=== PATIENT | female | born 1995 | race Hispanic/Latino ===

== ENCOUNTER 2016-11-09 19:34 | Emergency (ER) | payer OTHER ==
[~2016-11-09] VITALS: Ht 157.5 cm; Wt 54.4 kg
[2016-11-09 21:45] LABS: ABSOLUTE BASOPHIL COUNT 0 /CUMM (0.0-0.2); ABSOLUTE EOSINOPHIL COUNT 0.1 /CUMM (0.0-0.7); ABSOLUTE MONOCYTE COUNT 0.7 /CUMM (0.10-0.60); BASOPHIL % 0.4 % (0.0-2.0); EOSINOPHIL % 1.1 % (0-5); GRANULOCYTE % 60.1 % (42.2-75.2); HEMATOCRIT 35.3 % (37-47); MEAN CORPUSCULAR VOLUME 74.9 FL (81.0-99.0); MEAN PLATELET VOLUME 11.3 FL (7.4-10.4); PLATELET COUNT 219 /CUMM (130-400); RBC DISTRIBUTION WIDTH 19.8 % (11.5-14.5); RED BLOOD CELL CT 4.71 /CUMM (4.20-5.40); WHITE BLOOD CELL COUNT 11.5 /CUMM (4.8-10.8)
[2016-11-09 21:54] LABS: ABSOLUTE GRANULOCYTE CT 6.9 /CUMM (1.4-6.5); ABSOLUTE LYMPH COUNT 3.7 /CUMM (1.2-3.4)
--- NOTE | 2016-11-09 22:03 | ED NEURO DEFICIT/STROKE ---
History of Present Illness General Chief Complaint: General Adult Stated Complaint: PER MOM, "SHE HAS PAIN ALL HER LEFT SIDE" Source: patient Exam Limitations: language barrier Vital Signs & Intake/Output Vital Signs & Intake/Output Vital Signs Date Time Temp Pulse Resp B/P Pulse O2 O2 Flow FiO2 Ox Delivery Rate 11/09 2230 98.7 89 16 97/60 100 Room Air 11/09 1951 97.8 98 18 110/71 98 Room Air ED Intake and Output 11/10 0000 11/09 1200 Intake Total Output Total Balance Patient 120 lb Weight Allergies Coded Allergies: Penicillins (Intermediate, RASH 11/09/16) Reconcile Medications Hydrocodone/Acetaminophen (Hydrocodon-Acetaminophen 5-325) 5 MG-325 MG TABLET 1-2 TAB PO Q4-6 PRN PRN pain Meloxicam (Mobic) 15 MG TABLET 1 TAB PO DAILY pain Triage Note: PT TO TRIAGE WITH C/O PAIN 8/10, NUMBNESS AND WEAKNESS TO L SIDE OF BODY x3DAYS, WEAKNESS TO LUE AND LLE NOTED, NO FACIAL DROOP NOTED, SPEACH CLEAR. PT SPEAK K[place] AND HAS HER MOTHER TO TRANSLATE. PT DENIES CHEST PAIN,SOB,ABD PAIN. VSS. PT TO ROOM4. Triage Nurses Notes Reviewed? yes Onset: Abrupt Duration: week(s): (1), constant, continues in ED Timing: recent history : No Patient currently breastfeeds: No HPI: 21-year-old female that recently traveled from [place] 2 weeks ago that does not speak any [place]ian but has friend translating with . comes in with tingling and pain down her left arm and her left leg and weakness. Associated headache. Denies any fever chills vomiting shortness of breath chest pain or rashes. Denies any prior history of this. Denies any injuries. Nothing seems to make the symptoms better or worse. (ENRIQUE AMBROCIO) Past History Travel History Traveled to [place] past 21 day No Medical History Any Pertinent Medical History? none Surgical History Surgical History: none Psychosocial History What is your primary language Kazakh Tobacco Use: Current Daily Use Daily Tobacco Use Amount/Type: =< 4 Cigarettes daily Family History Hx Contributory? No (ENRIQUE AMBROCIO) Review of Systems Review of Systems Constitutional: Reports: no symptoms. EENTM: Reports: no symptoms. Respiratory: Reports: no symptoms. Cardiovascular: Reports: no symptoms. GI: Reports: no symptoms. Genitourinary: Reports: no symptoms. Musculoskeletal: Reports: see HPI. Skin: Reports: no symptoms. Neurological/Psychological: Reports: see HPI. Hematologic/Endocrine: Reports: no symptoms. Immunologic/Allergic: Reports: no symptoms. All Other Systems: Reviewed and Negative (ENRIQUE AMBROCIO) Physical Exam Physical Exam General Appearance: well developed/nourished, no apparent distress, alert, awake , anxious Head: atraumatic, normal appearance Eyes: Bilateral: normal appearance, PERRL, EOMI. Ears, Nose, Throat: normal ENT inspection, moist mucous membrane, hearing grossly normal Neck: normal inspection, full range of motion Respiratory: normal breath sounds, no respiratory distress Cardiovascular: regular rate/rhythm Gastrointestinal: normal bowel sounds, soft Back: normal inspection Extremities: normal range of motion Psychiatric: awake, alert, oriented x 3 Cranial Nerves: normal hearing, normal speech, PERRL, finger to nose intact, Coordination/Gait: normal finger to nose Motor/Sensory: 4-5 strength left upper extremity, left lower extremity, Skin: intact, normal color Core Measures CVA/TIA Diagnosis: No Severe Sepsis Present: No Septic Shock Present: No (ENRIQUE AMBROCIO) Progress Differential Diagnosis: acute glaucoma, Tineo's Palsy, drug intoxication, electrolyte imbalance, encephalitis, hypoglycemia, intracranial Hem., intracranial mass/tumor, meningitis, migraine SPRAGUE, seizure disorder, stroke, subarachnoid Hem., vertebrobasilar insuff., lyme disease, CVA, Plan of Care: Orders Procedure Date/time Status URINE 11/09 2115 Complete URINALYSIS 11/09 2115 Complete LYME TITRE 11/09 2115 Active COMPREHENSIVE METABOLIC PANEL 11/09 2115 Complete CBC WITHOUT DIFFERENTIAL 11/09 2115 Complete EKG 11/09 2115 Active Laboratory Tests 11/09/162129: Anion Gap 9, Estimated GFR > 60, BUN/Creatinine Ratio 18.6, Glucose 81, Calcium 8.9, Total Bilirubin 0.3, AST 17, ALT 27, Alkaline Phosphatase 88, Total Protein 6.9, Albumin 4.2, Globulin 2.7, Albumin/Globulin Ratio 1.6, CBC w Diff NO MAN DIFF REQ, RBC 4.71, MCV 74.9 L, MCH 24.0 L, RDW 19.8 H, MPV 11.3 H, Gran % 60.1, Lymphocytes % 31.9, Monocytes % 6.5, Eosinophils % 1.1, Basophils % 0.4, Absolute Granulocytes 6.9 H, Absolute Lymphocytes 3.7 H, Absolute Monocytes 0.7 H, Absolute Eosinophils 0.1, Absolute Basophils 0, PUBS MCHC 32.0 L 11/09/162119: Urinalysis HEAVY H, Urine Color YEL, Urine Clarity CLDY H, Urine pH 8.0, Ur Specific [place] 1.015, Urine Protein NEG, Urine Ketones NEG, Urine Nitrite NEG, Urine Bilirubin NEG, Urine Urobilinogen 0.2, Ur Leukocyte Esterase TRACE H, Ur Microscopic SEDIMENT EXAMINED, Urine RBC RARE, Urine WBC 1-3 H, Ur Epithelial Cells RARE, Granular Casts RARE H, Urine Hemoglobin NEG, Urine Glucose NEG, Urine Test NEGATIVE 11/09/16 2030: Lyme Disease Antibody Pending Diagnostic Imaging: Viewed by Me: CT Scan. Discussed w/RAD: CT Scan. Radiology Impression: SERVICE DATE: 11/09/16 EXAM TYPE: CAT - CT HEAD WO IV CONTRAST EXAMINATION: CT HEAD WITHOUT CONTRAST CLINICAL INFORMATION: Left upper extremity weakness. COMPARISON: None. TECHNIQUE: Contiguous axial images of the brain were obtained without IV contrast. DLP: 601 mGy-cm. FINDINGS: There are no pathologic extra-axial fluid collections. The lateral, third, fourth ventricles are nondilated and concordant with the appearance of the sulci. There is no evidence for acute intraparenchymal hemorrhage or infarct. There is neither mass nor mass effect. There is no shift of midline structures. The paranasal sinuses and mastoid air cells are clear. There are no osseous lesions. IMPRESSION: No evidence for acute intracranial injury. DICTATED BY: THIERRY CORONADO MD DATE/TIME DICTATED:11/09/162222 MIXING OPERATOR:MAGDALENA DATE/TIME TRANSCRIBED:11/09/162222 CONFIDENTIAL, DO NOT COPY WITHOUT APPROPRIATE AUTHORIZATION. Initial ED EKG: normal intervals, normal p-waves, normal sinus rhythm, rate (94) Comments: 11/10/2016 12:27:13 AM Follow-up with neurologist. Patient seen by Dr. Tineo. Patient has focal weakness in left upper and left lower extremity but no cranial nerve deficits. Low suspicion for CVA. Patient will follow-up with neurology as outpatient. Etiology of symptoms unclear at this time. (ENRIQUE AMBROCIO) Departure Departure Disposition: HOME OR SELF CARE Condition: Stable Clinical Impression Primary Impression: Left-sided muscle weakness Referrals: LIAM TALAVERA,HENRY Judge. PATIENT HAS NO PRIMARY CARE DR (PCP/Family) Additional Instructions: Cause of your symptoms are unclear at this time. Please follow-up with neurologist provided. Return to the emergency room immediately if any other concerns worsening symptoms. Take 81 mg aspirin tablet daily. Please go over all results of today's visit with your primary care doctor. Contact your primary care doctor to let them know you were here in the emergency room. There may be nonspecific findings which may not be related to your visit today here in the emergency room but may require further evaluation and chronic monitoring by your primary care doctor. If you had a laceration today the chance of foreign body always remains. You should follow-up with your primary care doctor for recheck in 3-5 days for a wound check. If you had an x-ray done there is a chance that a fracture could have been missed on initial read and you should follow-up with your primary care doctor for repeat x-rays if symptoms persist. If your blood pressure was elevated here in the emergency room please have rechecked by her primary care doctor within the next 48 hours by your primary care doctor. If you were prescribed a narcotic here in the emergency room or any type of controlled substances you're not allowed to drive while taking this medication or operate any type of heavy machinery. Narcotics can make you feel lightheaded dizziness nausea and can cause constipation. You may need to orange picker a stool softener. Thank you for choosing [facility] emergency room. Please return to the emergency room immediately if you have any other concerns worsening of symptoms. Departure Forms: Customer Survey General Discharge Information Prescriptions: Current Visit Scripts Hydrocodone/Acetaminophen (Hydrocodon-Acetaminophen 5-325) 1-2 TAB PO Q4-6 PRN PRN pain #10 TAB Meloxicam (Mobic) 1 TAB PO DAILY #15 TAB (ENRIQUE AMBROCIO) PA/ARC WELDER Co-Sign Statement Statement: ED Attending supervision documentation- [x] I saw and evaluated the patient. I have also reviewed all the pertinent lab results and diagnostic results. I agree with the findings and the plan of care as documented in the PA's/ARC WELDER's documentation. [] I have reviewed the ED Record and agree with the PA's/ARC WELDER's documentation. [] Additions or exceptions (if any) to the PAs/ARC WELDER's note and plan are summarized below: [] (CAHNDLER TALAVERA,SARA Holden)
--- NOTE | 2016-11-09 22:29 | CT SCAN REPORT ---
EXAMINATION: CT HEAD WITHOUT CONTRAST CLINICAL INFORMATION: Left upper extremity weakness. COMPARISON: None. TECHNIQUE: Contiguous axial images of the brain were obtained without IV contrast. DLP: 601 mGy-cm. FINDINGS: There are no pathologic extra-axial fluid collections. The lateral, third, fourth ventricles are nondilated and concordant with the appearance of the sulci. There is no evidence for acute intraparenchymal hemorrhage or infarct. There is neither mass nor mass effect. There is no shift of midline structures. The paranasal sinuses and mastoid air cells are clear. There are no osseous lesions. IMPRESSION: No evidence for acute intracranial injury.
[2016-11-09] MEDS ORDERED: MOBIC15 M1 PO (23:51)
[2016-11-09] MEDS ORDERED: HYDROCODON-ACE1 EAC2 PO (23:51)
[2016-11-10 00:56] VITALS: BP 106/62
== END 2016-11-10 00:56 ==
LOC: ERH 19:34
PROVIDERS: Physician Assistant Medical
DX: R53.1 Weakness (principal)
CPT/HCPCS: 86618; 81001; 81025; 93005; 93010